=== PATIENT | female | born 1995 | race African-American/Black ===

== ENCOUNTER 2019-12-03 00:52 | Emergency (ER) | payer OTHER | END 2019-12-03 03:03 | disposition left against medical advice (07) | LOC: ER 01:32 | DX: Z53.21 Procedure and treatment not carried out due to patient leaving prior to being seen by health care provider (principal) ==

== ENCOUNTER 2019-12-08 23:23 | Emergency (ER) | payer OTHER ==
[~2019-12-08] VITALS: Ht 167.6 cm; Wt 67.9 kg
[2019-12-09] MEDS ORDERED: IPRATROPIUM/ALBUTEROL 0.5-3(2.5)MG/3ML NEB HHN ONE (00:30)
[2019-12-09 01:05] VITALS: BP 117/74
== END 2019-12-09 01:06 | disposition home or self-care (01) ==
LOC: ER 23:23
DX: J45.901 Unspecified asthma with (acute) exacerbation (principal)
CPT/HCPCS: 94640; 99283; J7610; Z7610